=== PATIENT | female | born 1985 | race Hispanic/Latino ===

== ENCOUNTER 2018-04-05 13:12 | Emergency (ER) | payer OTHER ==
[2018-04-05 13:21] VITALS: BP 115/76; PULSE 78; RESP 16; TEMP 97.9; O2SAT 98
[2018-04-05] MEDS ORDERED: Fluorescein 1 mg Ophthalmic Strip OD STA (13:32)
[2018-04-05] MEDS ORDERED: PROPARACAINE/FLUORESCEIN SOD 100 DROP/5 ML BOTTLE OD STA ×2 (13:34→13:45)
[2018-04-05] MEDS ORDERED: PROPARACAINE/FLUORESCEIN SOD 100 DROP/5 ML BOTTLE ONE (13:42)
[2018-04-05] MEDS ORDERED: Tobramycin 0.3% OPHT SOLN OD ONE (13:46)
--- NOTE | 2018-04-05 13:47 | ED PDOC ---
HPI: Eye Injury/Pain Time Seen by Provider: 04/05/18 13:25 Chief Complaint (Nursing): Eye Problem Chief Complaint (Provider): Right Eye Pain History Per: Patient History/Exam Limitations: no limitations Onset/Duration Of Symptoms: Hrs Current Symptoms Are (Timing): Still Present Injury To Eye?: Yes Severity: None Quality: "Pain" Associated Symptoms: Pain. denies: Decreased Vision, Swelling, Discharge From Eye Additional Complaint(s): 32 year old female presents to the emergency department to be evaluated for injury to the right eye. Patient states that while on flight home from [place] she had her baby on her lap and he/she scratched her in the eye. She reports that she felt immediate pain after being scratched and has been in pain ever since. Patient does note some photophobia but denies vision changes. No medications taken prior to arrival. Denies use of contacts or glasses. LMP was 18 month ago, patient is 9 months and is still breast feeding. Period has not returned since. PMD: NO PRIMARY CARE PROVIDER Past Medical History Reviewed: Historical Data, Nursing Documentation, Vital Signs Vital Signs: Last Vital Signs Temp 97.9 F 04/05/18 13:19 Pulse 78 04/05/18 13:19 Resp 16 04/05/18 13:19 BP 115/76 04/05/18 13:19 Pulse Ox 98 04/05/18 13:19 - Medical History PMH: Back Problems (back surgery 2016), Hypothyroidism - Surgical History Surgical History: No Surg Hx - Family History Family History: States: Unknown Family Hx - Living Arrangements Living Arrangements: With Family - Social History Current smoker - smoking cessation education provided: No Alcohol: Social Drugs: Denies - Immunization History Hx Tetanus Toxoid Vaccination: Yes - Home Medications Home Medications: Ambulatory Orders Medication Instructions Recorded Tobramycin 0.3% [Tobrex 0.3% Ophth 2 drop OD Q6 #1 bottle 04/05/18 Soln] - Allergies Allergies/Adverse Reactions: Allergies Allergy/AdvReac Type Severity Reaction Status Date / Time amoxicillin Allergy RASH Verified 04/05/18 13:18 Review of Systems ROS Statement: Except As Marked, All Systems Reviewed And Found Negative Eyes: Positive for: Pain. Negative for: Vision Change Physical Exam - Reviewed Nursing Documentation Reviewed: Yes Vital Signs Reviewed: Yes - Physical Exam Comments: GENERAL APPEARANCE: Patient is awake, alert, oriented x 3, in mild painful distress, uncomfortable, well appearing. HEENT: (-) facial swelling and erythema, (-) facial blisters. VISUAL ACUITIES: Left eye: 20/ 20 ; Right eye: 20/ 20. LIDS & LASHES: Normal. PUPILS: Pupils _ . reactive. EOM's: Intact and painless. (-) orbital swelling LID EVERSION: (-) foreign body. CONJUNCTIVAE: + injection and tearing to right eye. CORNEA: (-) infiltrate. ANTERIOR CHAMBER: (-) foreign body, , (-) hyphema. FUNDUSCOPIC: (-) foreign body, (-) hemorrhage. FLUORESCEIN: (+) 2mm x 2mm area of uptake just inferior to pupil - ECG O2 Sat by Pulse Oximetry: 98 (RA) Pulse Ox Interpretation: Normal Medical Decision Making Medical Decision Makin Initial Impression 32 year old female presenting with corneal abrasion Initial Plan: * Tobramycin 0.3 % 1 drop OD * Flucaine Eye Drops 1 drop OD * Reevaluation 1415 On re-evaluation, patient reports improvement of symptoms, denies changes in vision and photophobia improved. On exam, patient remains AAOx3, in no acute distress. On exam, neck is supple, lungs CTA, cardiac RRR, neuro exam shows no focal findings. VSS, stable for discharge. Diagnostic results d/w the patient in great detail. Dx of corneal abrasion, acute eye pain d/w the patient. Based on history, exam and diagnostic results plan will be for discharge and outpatient ophtho follow up. Referral provided. Advised to follow up with primary care physician/ ophtho in 1-2 days without fail. Advised to take medication as prescribed. Return to the emergency room at any time for any new or worsening symptoms. Patient states she fully agrees with and understands discharge instructions. States that she agrees with the plan and disposition. Verbalized and repeated discharge instructions and plan. I have given the patient opportunity to ask any additional questions. Documented by Nurys Schulz acting as a scribe for Manda Posadas PA-C. All medical record entries made by the Scribe were at my direction and personally dictated by me. I have reviewed the chart and agree that the record accurately reflects my personal performance of the history, physical exam, medical decision making, and the department course for this patient. I have also personally directed, reviewed, and agree with the discharge instructions and disposition. Disposition - Clinical Impression Clinical Impression: Corneal abrasion, right, Pain in right eye - Patient ED Disposition Is Patient to be Admitted: No Counseled Patient/Family Regarding: Studies Performed, Diagnosis - Disposition Referrals: Saul Valencia MD [Staff Provider] - Disposition: Routine/Home Disposition Time: 14:20 Condition: STABLE Additional Instructions: FOLLOW UP WITH OPHTHO IN 1-2 DAYS WITHOUT FAIL. RETURN TO ED WITH ANY NEW OR WORSENING SYMPTOMS. Prescriptions: Tobramycin 0.3% [Tobrex 0.3% Ophth Soln] 2 drop OD Q6 #1 bottle Instructions: Corneal Abrasion Forms: [facility] ([place] Citizen) Print Language: [email or web address]
== END 2018-04-05 14:39 | disposition home or self-care (01) ==
LOC: H.ER 13:12
DX: S05.01XA Injury of conjunctiva and corneal abrasion without foreign body, right eye, initial encounter (principal); W50.4XXA Accidental scratch by another person, initial encounter